=== PATIENT | male | born 1990 ===

== ENCOUNTER 2022-02-10 15:03 | Outpatient (REF) | payer BC, SELFPAY ==
[2022-02-10 15:39] LABS: HCT 46.3 % (40.0-50.0); MCHC 36.7 % (32.0-36.0); MCV 79 fL (80-95); Platelet Count 280 10^3/uL (130-400); RBC 5.86 10^6/uL (4.36-5.78); RDW 12.1 % (11.8-14.1); RDW-SD 34.4 fL; WBC 6.57 10^3/uL (4.4-10.8)
[2022-02-10 15:59] LABS: Anion Gap 8.5 mmol/L (3-11); BUN 13 mg/dL (7-18); CO2 29.5 mmol/L (21.0-32.0); CREATININE 0.9 mg/dL (0.70-1.30); Calcium 9.2 mg/dL (8.5-10.1); Chloride 103 mmol/L (98-107); Glucose 88 mg/dL (74-106); Magnesium 1.9 mg/dL (1.8-2.4); Potassium 4.1 mmol/L (3.5-5.1); Sodium 141 mmol/L (136-145); TSH 0.91 uIU/mL (0.36-3.74)
== END 2022-02-10 15:04 | disposition home or self-care (01) ==
LOC: NCHCN 15:03
PROVIDERS: Visit Provider Nurse Practitioner Family
DX: R00.2 Palpitations (principal)
CPT/HCPCS: 80048; 85027; 83735; 84443

== ENCOUNTER 2025-02-27 16:20 | Outpatient (REF) | payer BC, SELFPAY ==
[2025-02-27 16:07] LABS: Anion Gap 4.6 mmol/L (3-11); BUN 10 mg/dL (7-18); CO2 31.4 mmol/L (21.0-32.0); Calcium 9.4 mg/dL (8.5-10.1); Calculated LDL 62 mg/dL (<100); Chloride 104 mmol/L (98-107); Cholesterol 161 mg/dL (<200); Estimated GFR 125.55 (mL/min/1.73m2); Glucose 84 mg/dL (74-106); HDL Cholesterol 49 mg/dL (>or=40); Potassium 4.4 mmol/L (3.5-5.1); Sodium 140 mmol/L (136-145); Triglyceride 253 mg/dL (<150); Vitamin D 25 Total 25 ng/mL (30-100)
[2025-02-27 17:18] LABS: Hemoglobin A1C 4.7 % (<5.7)
== END 2025-02-27 16:21 | disposition home or self-care (01) ==
LOC: NCHCN 16:20
PROVIDERS: Visit Provider Family Medicine
DX: Z00.00 Encounter for general adult medical examination without abnormal findings (principal)
CPT/HCPCS: 80048; 80061; 82306; 83036